=== PATIENT | female | born 1960 | race Asian ===

== ENCOUNTER → 2019-01-24 | Outpatient (CLI) | payer BC ==
[~2019-01-24] MED LIST: BARIUM SULFATE 0.1% SUSPENSION 450 ML BOTTLE ONE; HTN PO; IOVERSOL 350 MG/ML 100 ML VIAL ONE; SODIUM CHLORIDE 0.9% 100 ML ONE; VITAMINS PO
== END | disposition home or self-care (01) ==
LOC: RADMN 01-23 09:13
PROVIDERS: ATTEND Internal Medicine
DX: R10.12 Left upper quadrant pain (principal); M43.06 Spondylolysis, lumbar region; M48.05 Spinal stenosis, thoracolumbar region
CPT/HCPCS: 74177; J7050 ×2; Q9967

== ENCOUNTER 2020-04-09 23:09 | Emergency (ER) | payer BC ==
[~2020-04-09] VITALS: Ht 160 cm; Wt 63.6 kg
[~2020-04-09 23:09] MED LIST changes: -BARIUM SULFATE 0.1% SUSPENSION 450 ML BOTTLE ONE; -IOVERSOL 350 MG/ML 100 ML VIAL ONE; -SODIUM CHLORIDE 0.9% 100 ML ONE
[2020-04-09] MEDS ORDERED: ATOR40TA28 PO (23:25)
[2020-04-09] MEDS ORDERED: METO25 PO (23:25)
[2020-04-09] MEDS ORDERED: ONDANSETRON HCL 4 MG/2 ML VIAL IVP ONE (23:45)
[2020-04-09 23:53] LABS: BASOPHILS % (AUTO) 0.6 % (0.0-2.0); EOSINOPHILS % (AUTO) 1.6 % (1.0-6.0); HEMATOCRIT 41.6 % (36-46); HEMOGLOBIN 13.7 g/dL (12.0-16.0); LYMPHOCYTES # (AUTO) 2.8 K/uL (1.0-4.8); LYMPHOCYTES % (AUTO) 33.5 % (22.0-44.0); MEAN CORPUSCULAR HEMOGLOBIN 31.8 pg (26.0-34.0); MEAN CORPUSCULAR VOLUME 96 fL (80-100); MONOCYTES # (AUTO) 0.8 K/uL (0.1-1.0); NEUTROPHILS # (AUTO) 4.6 K/uL (1.8-7.7); NEUTROPHILS % (AUTO) 55.3 % (40.0-70.0); PLATELET COUNT (AUTO) 280 K/uL (150-450); RED BLOOD CELL COUNT(AUTO) 4.32 MIL/uL (4.00-5.20); RED CELL DISTRIBUTION WIDTH 11.3 % (11.5-14.5)
[2020-04-10 00:05] LABS: ANION GAP 8 mmol/L (8-16); CALCIUM, TOTAL 8.9 mg/dL (8.8-10.5); CARBON DIOXIDE 28 mmol/L (22-29); CHLORIDE 100 mmol/L (98-107); GLOMERULAR FILTR. RATE CALC > 60 mL/min (>60); GLUCOSE,RANDOM 141 mg/dL (70-110); SODIUM SERUM 136 mmol/L (136-145); UREA NITROGEN, BLOOD 21 mg/dL (7-18)
[2020-04-10 00:11] LABS: ALANINE AMINOTRANSFERASE 42 U/L (12-78); ALKALINE PHOSPHATASE 92 U/L (46-116); ASPARTATE AMINOTRANSFERASE 20 U/L (15-37); BILIRUBIN,TOTAL 0.6 mg/dL (0.1-1.0); LIPASE 192 U/L (73-393); TOTAL PROTEIN, SERUM 8.1 g/dL (6.4-8.2)
[2020-04-10] MEDS ORDERED: SODIUM CHLORIDE 0.9% 500 ML IV ONE (00:30)
[2020-04-10] MEDS ORDERED: MORPHINE SULFATE 4 MG/ML SYRINGE IVP ONE (00:30)
[2020-04-10] MEDS: POTASSIUM CHL 10 MEQ/WATER 50 ML IV SCH ×2 (00:34→01:22)
[2020-04-10 00:41] LABS: APPEARANCE,URINE CLOUDY (CLEAR); BILIRUBIN,URINE NEGATIVE (NEGATIVE); GLUCOSE, URINE (UA) NEGATIVE (NEGATIVE); KETONES,URINE NEGATIVE (NEGATIVE); LEUKOCYTE ESTERASE ,URINE TRACE (NEGATIVE); NITRATE,URINE NEGATIVE (NEGATIVE); OCCULT BLOOD,URINE NEGATIVE (NEGATIVE); PH,URINE 7.5 (5.0-8.0); PROTEIN,URINE POS 1+ (NEGATIVE); UROBILINOGEN,URINE 0.2 mg/dL (<=1.0)
[2020-04-10 00:44] LABS: BACTERIA,URINE Few /HPF (None Seen); RBC,URINE 0-2 /HPF (0-2); SQUAMOUS EPITHELIAL CELL,UR Rare /LPF (None Seen)
[2020-04-10 03:19] VITALS: BP 155/77
== END 2020-04-10 03:22 | disposition home or self-care (01) ==
LOC: EMS 23:09
DX: K80.20 Calculus of gallbladder without cholecystitis without obstruction (principal); R11.2 Nausea with vomiting, unspecified
CPT/HCPCS: 36415; 76705; 80053; 81001; 83690; 83735; 84132; 84484; 85025; 93005; 96361; 96374; 96375; 99285; J2270; J2405; J3480; J7040